=== PATIENT | female | born 1990 | race Caucasian/White ===

== ENCOUNTER 2022-09-28 07:47 | Inpatient (IN) | payer OTHER ==
[~2022-09-28] VITALS: Ht 157.5 cm; Wt 116.1 kg
== END 2022-09-30 13:11 | disposition home or self-care (01) | DRG 807 ==
LOC: OB/GYN 07:47 → LDR 07:47 → OB/GYN 11:16
PROVIDERS: ADMIT Obstetrics & Gynecology; ATTEND Obstetrics & Gynecology
PROC: 10E0XZZ Delivery of Products of Conception, External Approach (ICD-10-PCS; principal; 2022-09-28)
PROC: 4A1HXCZ Monitoring of Products of Conception, Cardiac Rate, External Approach (ICD-10-PCS; 2022-09-28)
DX: O80 Encounter for full-term uncomplicated delivery (principal); Z37.0 Single live birth; Z3A.38 38 weeks gestation of pregnancy; Z20.822 Contact with and (suspected) exposure to COVID-19